=== PATIENT | male | born 2000 | race African-American/Black ===

== ENCOUNTER → 2019-01-25 | Outpatient (CLI) | payer BC, OTHER ==
--- NOTE | 2019-01-25 15:40 | Diagnostic Imaging Report ---
INDICATION: Right hip injury playing football. Time of exam 9:52 a.m. FINDINGS: Two views of the right hip were obtained. Femoral acetabular alignment is normal. There is a small osseous density projected just lateral to the acetabular roof. An avulsion fracture cannot be excluded. The femoral head and neck are intact. Right-sided rami appears to be intact. IMPRESSION: There are findings suggestive of an avulsion fracture involving the superolateral aspect of the acetabulum. No other significant abnormalities are seen. Dictated by: Dictated on workstation # [id number]
--- NOTE | 2019-01-25 20:38 | Diagnostic Imaging Report ---
INDICATION: Injury to right leg playing football. TIME OF EXAM: 9:50 AM Multiple views right femur were obtained. FINDINGS: Alignment at the hip and knee is normal. The femur appears to be intact. Small osseous density projected just lateral to the superior lateral acetabulum is again noted and may represent small fracture fragment. No other abnormalities are seen. IMPRESSION: Questionable small fracture fragment along the superior lateral acetabulum. The femur appears intact. Dictated by: Dictated on workstation # [id number]
== END ==
LOC: RAD FS 09:43
PROVIDERS: ATTEND Nurse Practitioner
DX: S89.91XA Unspecified injury of right lower leg, initial encounter (principal); S79.911A Unspecified injury of right hip, initial encounter; Y93.61 Activity, american tackle football
CPT/HCPCS: 73502; 73552